=== PATIENT | female | born 1940 | race Caucasian/White ===

== ENCOUNTER → 2016-11-08 | Outpatient (CLI) | payer OTHER ==
--- NOTE | 2016-11-08 13:06 | DX ---
Biphasic Upper GI Series CLINICAL HISTORY: 76-year-old female with epigastric pain. TECHNIQUE: Initially, thin barium was ingested by the patient while standing, and fluoroscopy was per formed. Subsequently, the patient ingested effervescent crystals and thick barium and imaging of the hypopharynx and of the cervical and thoracic esophagus was performed while standing. The patient also ingested a 13 mm tablet with water. The patient was then placed in a prone MAURICE position, and thin ba rium was ingested while a Valsalva maneuver was performed. The patient was placed in a prone position , and a Valsalva maneuver was again performed. Imaging of the stomach and the proximal small bowel wa s obtained with the patient in AP, right and left posterior oblique, left lateral decubitus, and pron e positions. Fluoroscopy Time: 2.5 minutes (exposure dose of 26.80mGy) COMPARISON STUDY: None. FINDINGS: There is normal oral pharyngeal propulsion of the bolus into the hypopharynx with a normal, symmetrical appearance to the vallecula and the piriform sinuses. The posterior cervical esophagus i s normal. There are some small ventral traction spurs noted, which did not significantly impede flow. There is no cricopharyngeus spasm, achalasia, or Zenker's diverticulum. There is no aspiration. Ther e is antegrade esophageal motility, and a normal-appearing mucosa. There is no esophageal stricture. There is no esophageal ulceration, pulsion diverticulum, or stricture. There is a small central slidi ng hiatal hernia with Valsalva. This was associated with some low-level gastroesophageal reflux. The stomach is normal in size, shape, position, and mucosal fold pattern. There is prompt egress of bariu m into a normal-appearing duodenal bulb and C-sweep. Incidental note is made of some calcified hilar lymph nodes, consistent with old granulomatous disease. I provided a preliminary interpretation to the patient at times in performance. I also attempted to c onvey the information to Dr. Wilton Bassett, at 1:00 p.m. on November 08, 2016. IMPRESSION: Small central sliding hiatal hernia noted when the patient was supine. This was associated with some low-level gastroesophageal reflux, although there is no esophageal or gastric ulceration.
== END ==
LOC: FIMAGING 10:09
PROVIDERS: ATTEND Internal Medicine
DX: R10.13 Epigastric pain (principal); K44.9 Diaphragmatic hernia without obstruction or gangrene; K21.9 Gastro-esophageal reflux disease without esophagitis

== ENCOUNTER 2017-03-02 14:04 | Day surgery (SDC) | payer OTHER ==
[2017-03-02] MEDS ORDERED: BUPIVACAINE 0.5% 30 ML SDV ONE (15:31)
[2017-03-02] MEDS ORDERED: LIDOCAINE 1% 300 MG/30 ML SDV ONE (15:31)
[2017-03-02] MEDS ORDERED: IOPAMIDOL (ISOVUE-M 300) 15 ML VIAL ONE (15:32)
[2017-03-02] MEDS ORDERED: DEPO METHYLPREDNISOLONE 40 MG/ML SDV ONE (15:32)
== END 2017-03-02 16:18 | disposition home or self-care (01) ==
LOC: FIMAGING 14:04
PROVIDERS: ATTEND Physician Assistant
PROC: 3E0S33Z Introduction of Anti-inflammatory into Epidural Space, Percutaneous Approach (ICD-10-PCS; principal; 2017-03-02)
PROC: 3E0T3BZ Introduction of Anesthetic Agent into Peripheral Nerves and Plexi, Percutaneous Approach (ICD-10-PCS; principal; 2017-03-02)
DX: M54.5 Low back pain (principal); M51.36 Other intervertebral disc degeneration, lumbar region; M51.37 Other intervertebral disc degeneration, lumbosacral region
CPT/HCPCS: J1030; Q9967

== ENCOUNTER 2018-06-24 11:42 | Emergency (ER) | payer OTHER ==
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
[2018-06-24] MEDS: LET GEL TOPICAL 1 EA SYR TP ONE (12:36)
[2018-06-24 14:24] VITALS: BP 162/111
== END 2018-06-24 14:23 | disposition home or self-care (01) ==
PROC: 0HQDXZZ Repair Right Lower Arm Skin, External Approach (ICD-10-PCS; principal; 2018-06-24)
DX: S51.011A Laceration without foreign body of right elbow, initial encounter (principal); V18.0XXA Pedal cycle driver injured in noncollision transport accident in nontraffic accident, initial encounter; Y92.410 Unspecified street and highway as the place of occurrence of the external cause